=== PATIENT | female | born 2005 | race Caucasian/White ===

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

== ENCOUNTER 2023-01-31 06:32 | Emergency (ER) | payer OTHER ==
[~2023-01-31] VITALS: Ht 160 cm; Wt 64.5 kg
[2023-01-31] MEDS ORDERED: MACROBID 100 M100 MG PO (06:52)
[2023-01-31] MEDS ORDERED: PYRIDIUM100 MG PO (06:52)
[2023-01-31 06:59] LABS: BILIRUBIN, URINE NEGATIVE (negative); BLOOD/HGB, URINE LARGE (Negative); KETONE, URINE NEGATIVE (Negative); LEUK ESTERASE, URINE TRACE (negative); NITRITE, URINE NEGATIVE (negative)
[2023-01-31 07:10] LABS: BACTERIA, URINE NONE SEEN /hpf (negative); CRYSTALS, URINE NONE SEEN (0-1+); EPITHELIAL CELLS, URINE SQUAMOUS 1+ /lpf (0-1+); RED BLOOD CELLS, URINE >50 /hpf (0-5)
[2023-01-31 07:11] VITALS: BP 131/83
[2023-01-31 07:11] LABS: CASTS, URINE NONE SEEN \\lpf; COLLECTION TYPE, URINE CLEAN CATCH; REFLEX CULTURE, URINE Yes (No)
== END 2023-01-31 07:12 | disposition home or self-care (01) ==
LOC: ED 06:32
PROVIDERS: Internal Medicine
DX: N39.0 Urinary tract infection, site not specified (principal)
CPT/HCPCS: 81001; 84703; 87088; 99283